=== PATIENT | male | born 1955 | race Caucasian/White ===

== ENCOUNTER 2020-04-25 13:26 | Outpatient (CLI) | payer OTHER, SELFPAY | END 2020-04-25 13:27 | disposition home or self-care (01) | LOC: ANHCOVIDVC 13:27 | PROVIDERS: PCP Urology | DX: Z23 Encounter for immunization (principal) | CPT/HCPCS: 0001A; 91300 ==

== ENCOUNTER 2020-05-16 13:26 | Outpatient (CLI) | payer OTHER, SELFPAY | END 2020-05-16 13:27 | disposition home or self-care (01) | LOC: ANHCOVIDVC 13:26 | PROVIDERS: PCP Urology | DX: Z23 Encounter for immunization (principal) | CPT/HCPCS: 0002A; 91300 ==

== ENCOUNTER 2020-09-05 08:16 | Emergency (ER) | payer OTHER, SELFPAY ==
--- NOTE | ~2020-09-05 | CT_ITS ---
EXAMINATION: CT abdomen pelvis wo con DATE: 09/05/2020 11:16 INDICATION: Abdominal pain TECHNIQUE: Computed tomography (CT) of the abdomen and pelvis was performed without intravenous contr ast. The dose-length product (DLP) was 200.73 mGy-cm. Automated exposure control and iterative recons truction technique were employed. COMPARISON: 04/24/2007 FINDINGS: Minimal dependent atelectasis is present in the lung bases. The heart size is normal. The l iver, spleen, pancreas, gallbladder, and adrenal glands are normal. The kidneys are unremarkable. No stones are identified in the kidneys, ureters, or bladder. There is no hydronephrosis or hydroureter. No pathologically enlarged abdominal or pelvic lymph nodes are identified. There is no free intraper itoneal gas or evidence of bowel obstruction. Brachytherapy seeds are noted in the prostate. A modera te volume of colonic stool is present. Colonic diverticulosis is present without evidence of divertic ulitis. There is mild wall thickening of the urinary bladder. IMPRESSION: 1. No CT correlate for the patient's symptoms. No urolithiasis. 2. Mild wall thickening of the urinary bladder which could reflect cystitis or chronic outlet obstruc tion. Reviewed, dictated and finalized at location B. IMPRESSION: 1. No CT correlate for the patient's symptoms. No urolithiasis. 2. Mild wall thickening of the urinary bladder which could reflect cystitis or chronic outlet obstruction.
[2020-09-05 08:18] VITALS: BP 105/73; PULSE 91; RESP 12; TEMP 36.7; O2SAT 98
[2020-09-05 09:03] VITALS: BP 119/71; PULSE 86; RESP 17; O2SAT 98
[2020-09-05] MEDS: FAMOTIDINE 20 MG/2 ML VIAL IV PUSH (09:57)
[2020-09-05] MEDS: EPINEPHrine HCL INJ 1 MG/ML AMPUL 0.3 MG IM (09:57)
[2020-09-05 10:13] VITALS: BP 135/80; PULSE 92; RESP 14; O2SAT 98
[2020-09-05 10:40] LABS: Basophils Percent Auto 0.1 % (0.2-1.2); Hematocrit 48.9 % (42.0-52.0); Hemoglobin 16.2 g/dL (14.0-18.0); Immature Granulocyte Absolute 0.04 K/mm3 (0.00-0.031); Immature Granulocyte Percent A 0.3 % (0-0.5); Lymphocytes Absolute Auto 0.53 K/mm3 (0.9-3.2); Mean Corpuscular HGB Conc 33.1 g/dl (32-36); Mean Corpuscular Hemoglobin 29.9 pg (26-34); Mean Corpuscular Volume 90.2 fl (80-100); Mean Platelet Volume 9.4 fl (7.4-10.4); Monocytes Absolute Auto 0.3 K/mm3 (0.1-0.6); Monocytes Percent Auto 2.1 % (2.6-8.5); Neutrophils Absolute Auto 12.5 K/mm3 (1.3-6.7); Neutrophils Percent Auto 93.5 % (45.5-73.1); Platelet Count Result 284 k/mm3 (150-375); Red Blood Count 5.42 M/mm3 (4.6-6.20); Red Cell Distribution Width 13.1 % (11.5-14.5); White Blood Count 13.3 K/mm3 (4.5-10.0)
[2020-09-05 10:42] LABS: Alanine Aminotransferase 17 U/L (4-50); Albumin Level 4.8 g/dL (3.5-5.1); Alkaline Phosphatase 91 U/L (38-126); Anion Gap 8 mmol/L (8-16); Aspartate Amino Transferase 25 U/L (17-59); Bilirubin,Total 0.6 mg/dL (0.2-1.3); Blood Urea Nitrogen 8 mg/dL (9-20); Calcium 9.6 mg/dL (8.4-10.2); Carbon Dioxide 26 mmol/L (22-30); Chloride 102 mmol/L (98-107); Estimated CRCL calculation 90 ml/min; Estimated Glomerular Filt Rate > 60; Glucose 137 mg/dL (65-110); Potassium 4.4 mmol/L (3.4-5.0); Sodium 136 mmol/L (137-145)
[2020-09-05 10:51] LABS: Add Urine Microscopic? YES; Appearance Urine Clear (Clear); Bilirubin Urine Negative (Negative); Blood Urine Negative (Negative); Color Urine Yellow (Yellow); Glucose Urine UA Negative (Negative); Ketones Urine 1+ mg/dL (Negative); Leukocyte Esterase Ur Negative LEU/UL (Negative); Mucus Urine Rare /lpf; Nitrate Urine Negative (Negative); Protein Urine Negative (Negative); Specific Grav Ur 1.011 (1.001-1.035); Urobilinogen Urine Negative mg/dL (<2.0); WBC Urine 0-3 /hpf
--- NOTE | 2020-09-05 13:23 | ED.GENADULT ---
HPI - General Adult General Chief complaint: Allergic Reaction Stated complaint: Allergic RX Time Seen by Provider: 09/05/20 09:12 Source: patient and RN notes reviewed Mode of arrival: ambulatory Limitations: no limitations History of Present Illness HPI narrative: Patient is a 65-year-old male who presents to emergency department for evaluation of swelling of the face that began this morning notes history of angioedema took 50 mg of Benadryl and presents to emergency department patient has had similar occurrences in the past as noted patient denies any vomiting diarrhea URI symptoms chest pain dyspnea patient denies known allergic exposures patient notes he has also had some mild burning with urination and has history of prostate cancer and just finished taking Bactrim but continues to have the tingling and discomfort at the urethral tip Related Data Home Medications Medication Instructions Recorded Confirmed aspirin [Adult Aspirin] 81 mg PO DAILY 09/05/20 09/05/20 quinapril 20 mg PO DAILY 09/05/20 09/05/20 Allergies Allergy/AdvReac Type Severity Reaction Status Date / Time procaine Allergy Unknown Swelling Verified 09/05/20 08:24 NOVACAINE Allergy Mild FACIAL Uncoded 04/24/07 16:44 SWELLING pine tree Allergy Swelling Uncoded 09/05/20 08:29 of Lip/Tongue/Throat Review of Systems Review of Systems: All systems reviewed & are unremarkable except as noted in HPI and below PMFSH Past Medical History Medical History (Updated 09/05/20 @ 13:31 by Jeffy Martin PA-C) Angioedema Hypertension Prostate cancer Surgical History Surgical History (Updated 09/05/20 @ 13:28 by Jeffy Martin PA-C) History of prostate surgery Family History Family History (Updated 10/12/13 @ 07:13 by DOCTOR UNKNOWN) Mother Hypertension Sibling Cerebrovascular accident Father Patient's father is Social History Social History Smoking status: Never smoker Alcohol intake: current Exam Narrative: Exam Narrative: GENERAL: Well-appearing, well-nourished, and in no acute distress. HEAD: Normocephalic, atraumatic. EYES: PERRLA and EOMI. ENT: Nares clear, no rhinorrhea or epistaxis. Mucous membranes moist. Oropharynx without tonsillar hypertrophy exudate or other lesions. No angioedema in the oropharynx NECK: Supple. No adenopathy or masses. No stridor CHEST: Clear to auscultation. No respiratory distress. No wheezes rales or rhonchi HEART: Regular rate and rhythm. No murmur heard. Normal peripheral pulses. ABDOMEN: Soft, nontender, nondistended EXTREMITIES: Normal range of motion. No edema. SKIN: Warm, dry, no rash. Angioedema of the eyelids and lips NEURO: No focal deficits. Alert and oriented x3. Cranial nerves II through XII grossly intact PSYCH: Normal mood and affect. Course Course Emergency Course: Patient evaluated the emergency department was given medications with marked improvement feels comfortable to go home will be sent home with steroids antihistamines and EpiPen and follow-up with primary care advised to discontinue taking his quinapril. Patient is on another medication and attempts were made to contact his primary care unable to do so he will contact them tomorrow to discuss further blood pressure management and his angioedema. Patient will be follow by urology for his dysuria. Patient will be placed back on Bactrim as recommended by urology ABCs and vital signs intact and stable felt appropriate for outpatient reevaluation Consultations Consultation #1: Discussed case with urology who recommends placing the patient back on Bactrim and will follow with plan follow-up Date: 09/05/20 Vital Signs Vital signs: Vital Signs Temperature 98.0 F 09/05/20 08:18 Pulse Rate 91 09/05/20 08:18 Respiratory Rate 12 09/05/20 08:18 Blood Pressure 105/73 09/05/20 08:18 Pulse Oximetry 98 09/05/20 08:18
[2020-09-05 13:42] VITALS: BP 142/90; PULSE 80; RESP 20; O2SAT 99
== END 2020-09-05 13:43 | disposition home or self-care (01) ==
PROVIDERS: Emergency Medicine Emergency Medical Services; Emergency Provider Emergency Medicine; PCP Family Medicine Sports Medicine
DX: T78.3XXA Angioneurotic edema, initial encounter (principal); R30.0 Dysuria; Z79.82 Long term (current) use of aspirin; I10 Essential (primary) hypertension; Z85.46 Personal history of malignant neoplasm of prostate; R93.41 Abnormal radiologic findings on diagnostic imaging of renal pelvis, ureter, or bladder
CPT/HCPCS: 36415; 74176; 80053; 81001; 85025; 96372; 96374; 99284; J0171

== ENCOUNTER 2021-12-06 10:58 | Emergency (ER) | payer OTHER, SELFPAY ==
--- NOTE | 2021-12-06 11:02 | ED.EXTPRO ---
HPI - Extremity Problem General Chief complaint: Wound/Laceration Stated complaint: R FINGER INFECTION Time Seen by Provider: 12/06/21 11:02 Source: patient, RN notes reviewed and old records reviewed Mode of arrival: ambulatory Limitations: no limitations History of Present Illness HPI Narrative: 66-year-old male presents to the [facility] with his with complaints of redness and inflammation for the last 4 days to the right 2nd finger. He states that he cut his finger several days ago has been wearing a Band-Aid and placing Neosporin on it. Onset (ago): day(s) (4+) Related Data Home Medications Medication Instructions Recorded Confirmed aspirin 81 mg tablet 81 mg PO DAILY 09/05/20 12/06/21 amlodipine 10 mg tablet 10 mg PO DAILY 12/06/21 12/06/21 metoprolol succinate 25 mg 25 mg PO DAILY 12/06/21 12/06/21 tablet,extended release 24 hr tamsulosin 0.4 mg capsule 0.4 mg PO DAILY 12/06/21 12/06/21 Allergies Allergy/AdvReac Type Severity Reaction Status Date / Time procaine Allergy Unknown Swelling Verified 12/06/21 11:04 NOVACAINE Allergy Mild FACIAL Uncoded 12/06/21 11:04 SWELLING pine tree Allergy Swelling Uncoded 12/06/21 11:04 of Lip/Tongue/Throat Review of Systems Review of Systems: All systems reviewed & are unremarkable except as noted in HPI and below Constitutional: Constitutional: Reports no additional constitutional complaints, Denies chills and Denies fever(s) Eyes: Eyes: Reports no additional eye complaints ENT: Reports system reviewed and no additional complaints, except as documented Cardiovascular: Cardiovascular: Reports no additional cardiovascular complaints Respiratory: Respiratory: Reports no additional respiratory complaints Gastrointestinal: Gastrointestinal: Reports no additional gastrointestinal complaints Musculoskeletal: Musculoskeletal: Reports no additional musculoskeletal complaints Integumentary/Breasts: Skin/Breast: Reports as per HPI and Reports erythema Neurologic: Reports system reviewed and no additional complaints, except as documented Psychiatric: Psychiatric: Reports no additional psychiatric complaints Allergic/Immunologic: Allergic/Immunologic: Reports no additional allergic/immunologic complaints PMFSH Past Medical History Medical History Angioedema Hypertension Prostate cancer Surgical History Surgical History History of prostate surgery Family History Family History Mother Hypertension Sibling Cerebrovascular accident Father Patient's father is Social History Social History Smoking status: Never smoker Alcohol intake: current Comments At the time of my signature, I reviewed and agree with the nursing past medical, surgical, social, and family history. There is no relevant family history pertinent to the patient complaint. Exam Const: General: healthy appearing, no acute distress, alert and well nourished Nutritional Appearance: well nourished Orientation/consciousness: patient oriented x3 Limitations: no limitations HENMT: Head: normal to inspection Ears: external ears normal Eyes: General: appearance normal, both eyes and all related structures Pupils: Equal, round and reactive pupils present Neck: Neck: normal visual inspection, no lymphadenopathy and no meningeal signs Chest: Chest palpation & inspection: normal inspection of the chest Resp: Effort & Inspection: normal respiratory effort and no use of accessory muscles Cardio: Rate: regular rate Rhythm: regular rhythm Skin: General skin exam: normal color Rashes: no rashes Other: Small cut noted to the 2nd finger right hand with surrounding redness. Cut is starting to heal. No fluctuance noted. Increased warm
[2021-12-06 11:06] VITALS: BP 154/87; PULSE 108; RESP 16; TEMP 37.2; O2SAT 98
[2021-12-06 11:07] VITALS: BP 154/87; RESP 16; TEMP 37.2; O2SAT 98
== END 2021-12-06 11:17 | disposition home or self-care (01) ==
PROVIDERS: Emergency Provider Nurse Practitioner; PCP Family Medicine Sports Medicine
DX: L08.9 Local infection of the skin and subcutaneous tissue, unspecified (principal); Z79.82 Long term (current) use of aspirin; I10 Essential (primary) hypertension; Z85.46 Personal history of malignant neoplasm of prostate
CPT/HCPCS: 99213; G0463